=== PATIENT | female | born 1995 | race Caucasian/White ===

== ENCOUNTER 2019-03-11 23:49 | Emergency (ER) | payer MEDICAID, OTHER ==
[2019-03-12 06:06] LABS: ABS Lymphocytes 2.8 10^3/ul (1.0-4.8); ABS Monocytes 0.5 10^3/ul (0-0.8); ABS Neutrophils 5.3 10^3/ul (1.5-7.7); Eosinophil % 0.4 %; Hematocrit 40 % (35-47); Lymphocyte % 32.2 %; Mean Corpuscular HGB Conc 35 g/dL (31-36); Mean Corpuscular Hemoglobin 30 pg (27-31); Mean Corpuscular Volume 84 fL (80-97); Mean Platelet Volume 7.7 fL (7.4-10.4); Nucleated Red Blood Cells % 0.1; Platelet Count 255 10^3/uL (150-450); Red Blood Count 4.72 10^6 /uL (3.70-4.87); Red Cell Distribution Width 12 % (10-15); White Blood Count 8.5 10^3/uL (3.5-10.8)
[2019-03-12 06:30] LABS: Albumin 4.3 g/dL (3.2-5.2); Albumin/Globulin Ratio 1.4 (1-3); BUN/Creatinine Ratio 20.3 (8-20); EGFR African American 110.1 (>60); Potassium 3.5 mmol/L (3.5-5.0); Total Bilirubin 0.4 mg/dL (0.2-1.0); Total Protein 7.3 g/dL (6.4-8.9)
[2019-03-12 07:01] VITALS: BP 112/75
--- NOTE | 2019-03-12 08:42 | ED ---
Dizziness - HPI Summary HPI Summary: Patient is a 23 y/o F presenting to ED with complaints of fatigue, shakiness, nausea, and dizziness characterized as feeling light-headed/near syncopal. Sx onset around 2300 03/11/19. She states that she had four episodes of feeling intermittently near syncopal. She reports no similar previous episodes, denies Hx of syncope. Patient is only on control and denies any other medications. She denies alcohol and substance usage. She has not been out in the heat today but does note that she has not had anything to eat or drink in the past few hours. On triage, pain is denied, nothing is noted to aggravate/ alleviate Sx. Home medications and allergies are reviewed. - History Of Current Complaint Chief Complaint: EDDizziness Stated Complaint: WEAKNESS, DOESNT FEEL RIGHT PER PT Time Seen by Provider: 03/12/19 05:35 Hx Obtained From: Patient Timing: Intermittent Episode Lasting Severity Currently: None Character: Lightheaded, Dizzy Aggravating Factor(s): Nothing Alleviating Factor(s): Nothing Associated Signs And Symptoms: Positive: Nausea, Other: - shakiness, fatigue - Allergies/Home Medications Allergies/Adverse Reactions: Allergies Allergy/AdvReac Type Severity Reaction Status Date / Time No Known Allergies Allergy Verified 03/12/19 05:53 PMH/Surg Hx/FS Hx/Imm Hx Respiratory History: Reports: Hx Asthma Sensory History: Denies: Hx Legally Blind, Hx Deafness Opthamlomology History: Denies: Hx Legally Blind EENT History: Denies: Hx Deafness Infectious Disease History: No Infectious Disease History: Reports: 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 GENERAL: Patient is a well-developed and nourished female who is lying comfortable in the stretcher. Patient is not in any acute respiratory distress. HEAD AND FACE: No signs of trauma. No ecchymosis, hematomas or skull depressions. No sinus tenderness. EYES: PERRLA, EOMI x 2, No injected conjunctiva, no nystagmus. EARS: Hearing grossly intact. Ear canals and tympanic membranes are within normal limits. MOUTH: Oropharynx within normal limits. NECK: Supple, trachea is midline, no adenopathy, no JVD, no carotid bruit, no c- spine tenderness, neck with full ROM CHEST: Symmetric, no tenderness at palpation LUNGS: Clear to auscultation bilaterally. No wheezing or crackles. CVS: Regular rate and rhythm, S1 and S2 present, no murmurs or gallops appreciated. ABDOMEN: Soft, non-tender. No signs of distention. No rebound no guarding, and no masses palpated. Bowel sounds are normal. EXTREMITIES: FROM in all major joints, no edema, no cyanosis or clubbing. NEURO: Alert and oriented x 3. No acute neurological deficits. Speech is normal and follows commands. SKIN: Dry and warm Triage Information Reviewed: Yes Vital Signs On Initial Exam: Initial Vitals Temp Pulse Resp BP Pulse Ox 100.1 F 109 18 129/82 98 03/11/19 23:56 03/11/19 23:56 03/11/19 23:56 03/11/19 23:56 03/11/19 23:56 Vital Signs Reviewed: Yes Diagnostics - Vital Signs Vital Signs Temp Pulse Resp BP Pulse Ox 03/12/19 07:00 99.8 F 72 14 112/75 98 03/12/19 06:38 83 113/76 100 03/12/19 06:15 76 98 03/12/19 05:39 98.3 F 03/12/19 04:30 98.1 F 68 16 109/71 99 03/12/19 02:11 99.2 F 86 18 111/65 99 03/11/19 23:56 100.1 F 109 18 129/82 98 - Laboratory Lab Results: Lab Results 03/12/19 03/12/19 03/12/19 Range/Units 05:48 05:48 05:49 WBC 8.5 (3.5-10.8) 10^3/uL RBC 4.72 (3.70-4.87) 10^6 /uL Hgb 14.0 (12.0-16.0) g/dL Hct 40 (35-47) % MCV 84 (80-97) fL MCH 30 (27-31) pg MCHC 35 (31-36) g/dL RDW 12 (10-15) % Plt Count 255 (150-450) 10^3/uL MPV 7.7 (7.4-10.4) fL Neut % (Auto) 61.6 % Lymph % (Auto) 32.2 % Grayson % (Auto) 5.6 % Eos % (Auto) 0.4 % Baso % (Auto) 0.2 % Absolute Neuts (auto) 5.3 (1.5-7.7) 10^3/ul Absolute Lymphs (auto) 2.8 (1.0-4.8) 10^3/ul Absolute Monos (auto) 0.5 (0-0.8) 10^3/ul Absolute Eos (auto) 0.0 (0-0.6) 10^3/ul Absolute Basos (auto) 0.0 (0-0.2) 10^3/ul Absolute Nucleated RBC 0.0 10^3/ul Nucleated RBC % 0.1 Sodium 137 (135-145) mmol/L Potassium 3.5 (3.5-5.0) mmol/L Chloride 106 (101-111) mmol/L Carbon Dioxide 23 (22-32) mmol/L Anion Gap 8 (2-11) mmol/L BUN 16 (6-24) mg/dL Creatinine 0.79 (0.51-0.95) mg/dL Est GFR ( Amer) 110.1 (>60) Est GFR (Non-Af Amer) 91.0 (>60) BUN/Creatinine Ratio 20.3 H (8-20) Glucose 93 (70-100) mg/dL Calcium 9.0 (8.6-10.3) mg/dL Total Bilirubin 0.40 (0.2-1.0) mg/dL AST 15 (13-39) U/L ALT 15 (7-52) U/L Alkaline Phosphatase 61 (34-104) U/L Troponin I 0.00 (<0.04) ng/mL Total Protein 7.3 (6.4-8.9) g/dL Albumin 4.3 (3.2-5.2) g/dL Globulin 3.0 (2-4) g/dL Albumin/Globulin Ratio 1.4 (1-3) TSH 2.52 (0.34-5.60) mcIU/mL Result Diagrams: 03/12/19 05:48 03/12/19 05:48 Lab Statement: Any lab studies that have been ordered have been reviewed, and results considered in the medical decision making process. - EKG 0122 Cardiac Rate: Tachycardia - rate of 122 BPM EKG Rhythm: Sinus Tachycardia Summary of EKG Findings: EKG showed sinus tachycardia with rate of 122 BPM, normal axis, normal interval, no ischemic changes. Dizzy Course/Dx - Course Course Of Treatment: Patient is a 23 y/o F presenting to ED with complaints of fatigue, shakiness, nausea, and dizziness characterized as feeling light-headed/ near syncopal. Sx onset around 2300 03/11/19. She states that she had four episodes of feeling intermittently near syncopal. She reports no similar previous episodes, denies Hx of syncope. Patient is only on control and denies any other medications. She denies alcohol and substance usage. She has not been out in the heat today but does note that she has not had anything to eat or drink in the past few hours. Patient was provided food and water. EKG showed sinus tachycardia with rate of 122 BPM, normal axis, normal interval, no ischemic changes. Labs showed BUN/creatinine ratio of 20.3. Trop was 0, TSH 2.52. Patient was discharged to home with PCP follow up. - Diagnoses Provider Diagnoses: Dizziness Discharge - Sign-Out/Discharge Documenting (check all that apply): Patient Departure - discharge Patient Received Moderate/Deep Sedation with Procedure: No - Discharge Plan Condition: Stable Disposition: HOME Patient Education Materials: Dizziness (ED) Referrals: Abida Nava NP [Primary Care Provider] - 3 Days Additional Instructions: RETURN TO ED FOR ANY NEW OR WORSENING SYMPTOMS. FOLLOW UP WITH YOUR PRIMARY CARE PHYSICIAN WITHIN THREE DAYS. - Attestation Statements Document Initiated by Roderick: Yes Documenting Scribe: CASEY HUSTON Provider For Whom Roderick is Documenting (Include Credential): JAIR SMITH MD Scribe Attestation: CASEY Murrieta, scribed for JAIR SMITH MD on 03/12/19 at 0908. Status of Scribe Document: Ready
== END 2019-03-12 07:00 | disposition home or self-care (01) ==
LOC: ED 23:49
DX: R42 Dizziness and giddiness (principal); J45.909 Unspecified asthma, uncomplicated
CPT/HCPCS: 36415; 80053; 84443; 84484; 85025; 93005; 99282